=== PATIENT | female | born 1940 | race Caucasian/White ===

== ENCOUNTER 2024-11-21 07:53 | Emergency (ER) | payer MEDICARE, BC, SELFPAY ==
[2024-11-21] VITALS (14 sets, daily range): BP systolic 121–158; BP diastolic 56–79; PULSE 89–101; RESP 16; TEMP 36.7; O2SAT 95–98; BMI 16.8
[2024-11-21 08:32] LABS: Add Manual Diff / Slide Review NO; Hematocrit 38.0 % (36-46); Hemoglobin 13.0 g/dL (12.0-16.0); Lymphocytes Absolute Auto 800 /uL (1100-4500); Mean Corpuscular HGB Conc 34.1 % (30-36); Mean Corpuscular Hemoglobin 32.2 PG (26-34); Mean Corpuscular Volume 94.5 fL (80-100); Platelet Count 225 X10^3/uL (150-400)
--- NOTE | 2024-11-21 08:41 | ED.ABDPAIN ---
HPI - Abdominal Pain General Chief Complaint: Abdominal Pain Stated Complaint: Per patient, Possible Appendicitis x 1 day Time Seen by Provider: 11/21/24 08:19 History of Present Illness HPI narrative: This is an 84-year-old female who arrives by private vehicle accompanied by her daughter. She is reporting right lower quadrant abdominal pain for about 12 hours onset last night. She has also had some increase in her chronic diarrhea without blood, had nausea and vomited this morning. Also had a fever this morning. Not having urinary symptoms. Has a history of esophageal cancer with previous esophagectomy and right colectomy. Not sure she has had a previous appendectomy.. Last oral intake was before midnight last night. Patient takes diltiazem and metoprolol for her ?heart?. Does not have atrial fibrillation and states she is not anticoagulated Related Data Allergies Allergy/AdvReac Type Severity Reaction Status Date / Time garlic Allergy Verified 11/21/24 08:17 Exam Narrative Exam Narrative: Elderly female who is alert appears to be in no distress mildly tachycardic Initial Vital Signs Initial Vital Signs: Vital Signs Pulse Rate 97 H 11/21/24 08:10 Blood Pressure 149/79 H 11/21/24 08:10 Pulse Oximetry 97 11/21/24 08:10 HENMT HENMT Other: Normocephalic atraumatic oral mucosa is moist Resp Other: Lungs are clear normal respiratory effort Cardio Other: Regular rhythm and rate no murmur rub or gallop GI Other: Normal bowel sounds, abdomen is soft she is tender in the right lower quadrant with guarding. Skin Other: Warm and dry Neuro Other: Alert and oriented without gross deficits Course Orders Ordered: ED Orders 11/21/24 08:26 Complete Blood Count AUTO DIFF Stat Comprehensive Metabolic Panel Stat Lipase Stat 11/21/24 08:40 CT abdomen pelvis w con Stat 11/21/24 09:18 Urine Microscopic Stat 11/21/24 11:03 US abdomen limited Stat Discontinued Medications Acetaminophen (Acetaminophen 325 Mg Tablet) 975 mg PO NOW ONE Stop: 11/21/24 11:25 Last Admin: 11/21/24 11:50 Dose: Not Given Documented By: FLO Hydromorphone HCl (Hydromorphone 1 Mg/Ml Syringe) 0.5 mg IV NOW ONE Stop: 11/21/24 09:27 Last Admin: 11/21/24 09:44 Dose: 0.5 mg Documented By: FLO(2) Sodium Chloride (Normal Saline 0.9%) 1,000 mls @ 1,000 mls/hr IV BOLUS ONE Stop: 11/21/24 09:39 Last Infusion: 11/21/24 10:28 Dose: Infused Documented By: Admin: 11/21/24 09:09 Dose: 1,000 mls/hr Documented By: Ondansetron HCl (Ondansetron 4 Mg/2 Ml Inj) 4 mg IV NOW PRN PRN Reason: Nausea And Vomiting Last Admin: 11/21/24 11:24 Dose: 4 mg Documented By: Ondansetron HCl (Ondansetron 4 Mg Odt) 4 mg PO NOW PRN PRN Reason: Nausea And Vomiting Vital Signs Vital signs: Vital Signs - 8 hr 11/21/24 09:00 11/21/24 09:36 11/21/24 09:36 Pulse Rate 94 H 101 H Blood Pressure 158/72 H Pulse Oximetry 98 98 11/21/24 10:00 11/21/24 10:00 11/21/24 10:24 Pulse Rate 95 H 95 H Blood Pressure 133/62 Pulse Oximetry 95 96 11/21/24 10:24 11/21/24 10:30 11/21/24 10:30 Pulse Rate 92 H Blood Pressure 135/63 131/56 L Pulse Oximetry 95 11/21/24 11:00 11/21/24 11:00 11/21/24 11:30 Pulse Rate 93 H 90 Blood Pressure 121/64 Pulse Oximetry 97 96 11/21/24 11:30 11/21/24 12:00 11/21/24 12:00 Pulse Rate 89 Blood Pressure 136/62 126/72 Pulse Oximetry 97 11/21/24 12:30 11/21/24 12:30 11/21/24 13:00 Pulse Rate 91 H 94 H Blood Pressure 135/62 Pulse Oximetry 95 97 11/21/24 13:04 11/21/24 13:04 Pulse Rate 92 H Blood Pressure 132/63 Pulse Oximetry 97 MDM - Abdominal Pain Lab Data 11/21/24 08:26 11/21/24 08:26 Labs: Lab Results 11/21/24 11/21/24 Range/Units 08:26 09:18 WBC 9.9 (4.5-11.0) X10^3/uL RBC 4.03 (4.0-5.2) X10^6/uL Hgb 13.0 (12.0-16.0) g/dL Hct 38.0 (36-46) % MCV 94.5 (80-100) fL MCH 32.2 (26-34) PG MCHC 34.1 (30-36) % RDW 15.3 H (11.6-14.8) % Plt Count 225 (150-400) X10^3/uL Neut % (Auto) 85.0 H (50-75) % Lymph % (Auto) 7.9 L (25-40) % Dale % (Auto) 6.4 (3-14) % Eos % (Auto) 0.2 L (2-4) % Baso % (Auto) 0.5 (0-2) % Neut # (Auto) 8500 H (4294-0245) /uL Lymph # (Auto) 800 L (1034-8443) /uL Dale # (Auto) 600 (0-900) /uL Eos # (Auto) 0 (0-450) /uL Baso # (Auto) 100 (0-100) /uL Sodium 135 L (137-145) mmol/L Potassium 4.1 (3.4-5.1) mmol/L Chloride 102 (98-107) mmol/L Carbon Dioxide 27 (22-32) mmol/L BUN 15 (7-17) mg/dL Creatinine 0.82 (0.52-1.04) mg/dL Estimated GFR > 60 (>60) mL/min BUN/Creatinine Ratio 18.3 (6-22) Glucose 92 (70-99) mg/dL Calcium 8.2 L (8.4-10.2) mg/dL Total Bilirubin 1.8 H (0.2-1.3) mg/dL AST 34 (14-36) IU/L ALT 22 (<35) IU/L Alkaline Phosphatase 87 (38-126) U/L Total Protein 6.7 (6.3-8.2) g/dL Albumin 4.2 (3.5-5.0) g/dL Globulin 2.5 (1.7-4.1) g/dL Albumin/Globulin Ratio 1.7 (1.0-2.8) Lipase 13 L (23-300) U/L Urine RBC 1-5/hpf (0-5/HPF) Urine WBC 1-5/hpf (0-5/HPF) Ur Squamous Epith Cells 1-5 /hpf (0-5/HPF) Urine Bacteria Occasional (0-1) (None) Ur Culture Indicated? Cult not indicated Vol Urine Centrifuged 10ml (spun) Point of care testing: Urine Dip Bedside Urine Glucose Negative Bedside Urine Bilirubin - Negative Bedside Urine Ketone ++ 40 Urine Specific [place] 1.015 Bedside Urine Occult Blood + Bedside Urine pH 5.5 Bedside Urine Protein +/- 15 Bedside Urine Urobilinogen - Negative Bedside Urine Nitrite - Negative Bedside Urine Leukocytes - Negative Esterase Imaging Data CT scan - abdomen/pelvis: My Impression: Independent review of CT abdomen and pelvis, some bowel thickening, no evidence of obstruction perforation, gallbladder is distended with gallstones present but does not appear to have acute cholecystitis Radiologist's Impression: [address] [address] [address] Scan Report Signed Patient: Lacie Lott MR#: [id number] : 1940 Acct:[id number] Age/Sex: 84 / F Date of Service: 11/21/24 Loc: ED Accession Number: [id number] Procedure: CT abdomen pelvis w con Ordering Provider: Chun Johnson MD PROCEDURE: CT ABDOMEN PELVIS W CON INDICATIONS: rlq abd pain TECHNIQUE: After the administration of intravenous contrast, axial sections acquired from the lung bases to the pubic symphysis. Coronal and sagittal reformats were performed. For radiation dose reduction, the following was used: automated exposure control, adjustment of mA and/or kV according to patient size. COMPARISON: None. FINDINGS: Image quality: Diagnostic. Lower Chest: Hiatal hernia. Mild band like atelectasis or scarring in the lung bases. ABDOMEN: Liver: No solid mass. Benign appearing cyst is seen in the left hepatic lobe. Gallbladder: Mildly distended gallbladder with multiple tiny calcified gallstones. No significant wall thickening. Biliary ducts: No biliary dilation or choledocholith. Pancreas: No ductal dilation. Spleen: Size is within normal limits. Nonspecific 15 mm hypoattenuating lesion is seen within the spleen. Adrenal Glands: No adrenal nodules. Kidneys and Ureters: Mild scarring at the superior pole the left kidney. No hydronephrosis. No solid mass. No complex renal cystic lesion which requires follow up. Stomach and Bowel: Postsurgical changes are seen with ileocolonic anastomosis in the right lower abdomen. There is marked bowel wall thickening in the transverse and proximal descending colon with pericolonic fat stranding Peritoneum: Small volume of free fluid is seen in the abdomen and pelvis. No pneumoperitoneum. Ventral Wall: No significant ventral hernia. Abdominal Nodes: No retroperitoneal or mesenteric adenopathy by size criteria. Vessels: Aorta and inferior vena cava are normal in size. PELVIS: Pelvic Organs: Status post hysterectomy. Bladder: No bladder wall thickening, accounting for underdistention. Pelvic Nodes: No enlarged lymph nodes. Miscellaneous: No inguinal hernias are seen. Bones: No aggressive osseous abnormality. IMPRESSION: 1. Long segment bowel wall thickening in the transverse and proximal descending colon with pericolonic fat stranding, suspicious for a nonspecific colitis. 2. Small volume of ascites in the abdomen or pelvis. 3. Mildly distended gallbladder with cholelithiasis but no definite signs of acute cholecystitis. 4. Moderate hiatal hernia. Postsurgical changes at the stomach and cecum. Approved by: Barrera Paniagua M.D. on 11/21/2024 at 10:25 US - abdomen: Radiologist's Impression: [place] [address] Ultrasound Report Signed Patient: Lacie Lott MR#: [id number] : 1940 Acct:[id number] Age/Sex: 84 / F Date of Service: 11/21/24 Loc: ED Accession Number: [id number] Procedure: US abdomen limited Ordering Provider: Chun Johnson MD PROCEDURE: US ABDOMEN LIMITED INDICATIONS: RIGHT UPPER QUADRANT PAIN, CHOLECYSTITIS. TECHNIQUE: Real-time focused scanning was performed of the abdomen, with image documentation. COMPARISON: None. FINDINGS: Cholelithiasis with numerous echogenic shadowing gallstones in the moderately distended gallbladder. Possible mild pericholecystic fluid may be related to mild diffuse abdominal ascites however raises the suspicion for acute cholecystitis. If indicated nuclear medicine HIDA scan or CT abdomen/pelvis may be useful for further evaluation. No gross gallbladder wall thickening. Sonographic Hurd sign is not delineated. Common bile duct 6 millimeters within normal limits. Atrophic pancreas is noted without gross ultrasound evidence of pancreatic mass. Incidental note is made of a right pleural effusion partially imaged. Mild right renal pelviectasis, versus normal variant extrarenal pelvis or mild right hydronephrosis partially imaged. Liver measures approximately 15.8 cm in CC dimension of the. Hepatic echogenicity within normal limits without focal hepatic lesion. IMPRESSION: Cholelithiasis with equivocal findings for cholecystitis as discussed above. If indicated nuclear medicine HIDA scan, or CT abdomen/pelvis could be performed. Mild abdominal ascites and right pleural effusion. Mild right renal pelviectasis as discussed above. Common bile duct 6 mm within normal limits. Dictated by: Lavell Medrano M.D. on 11/21/2024 at 12:40 Approved by: Lavell Medrano M.D. on 11/21/2024 at 12:57 MDM Narrative Medical decision making narrative: 84-year-old female with right lower quadrant abdominal pain. She is status post colectomy, it was unclear whether appendix is still present. She has diarrhea which is chronic but a bit worse. Patient is overall well-appearing differential diagnosis considered included bowel obstruction, colitis, appendicitis, ureteral stone or pyelonephritis. Workup did suggest colitis. Cholecystitis was considered based on imaging however clinically seemed unlikely. Recommended symptomatic treatment with clear liquid diet and acetaminophen for pain. Patient was quite reassured that appendicitis was not felt to be present. She was advised specifically to return to the emergency department if getting worse and she has follow up with her primary care provider soon. Discharge Plan Departure Patient Disposition: Home Clinical Impression: Colitis Abdominal pain Qualifiers: Abdominal location: right lower quadrant Qualified Code(s): R10.31 - Right lower quadrant pain Activity Restrictions/Additional Instructions: Emergency department workup today is reassuring. I think it is safe for you to go home. Imaging does suggest you have some inflammation of your colon, it is not clear what is causing this and often times this resolves with time. I recommend that you follow a clear liquid diet until you start to feel a bit better. You can use Tylenol as needed for pain at usual [id number] doses. Continue your previous home medications. If you are feeling worse such as having fevers frequent vomiting increasing pain bloody diarrhea please return to the emergency department immediately. Also, I recommend that you follow up as soon as possible with your primary care provider. Stand Alone Forms: Patient Portal/API
[2024-11-21 08:51] LABS: Alanine Aminotransferase 22 IU/L (<35); Albumin 4.2 g/dL (3.5-5.0); Albumin Globulin Ratio 1.7 (1.0-2.8); Alkaline Phosphatase 87 U/L (38-126); Blood Urea Nitrogen 15 mg/dL (7-17); Calcium 8.2 mg/dL (8.4-10.2); Carbon Dioxide 27 mmol/L (22-32); Chloride 102 mmol/L (98-107); Estimated Glomerular Filt Rate > 60 mL/min (>60); Globulin 2.5 g/dL (1.7-4.1); Glucose 92 mg/dL (70-99); HEMOLYSIS < 15 (0-50); Lipase 13 U/L (23-300); Potassium 4.1 mmol/L (3.4-5.1); Sodium 135 mmol/L (137-145); Total Protein 6.7 g/dL (6.3-8.2)
[2024-11-21] MEDS: SODIUM CHLORIDE 0.9% 1,000 ML 1000 ML IV (09:09)
[2024-11-21 09:46] LABS: Culture Indicated Urine Cult Not Indicated
--- NOTE | 2024-11-21 11:03 | DI.US.S_ITS ---
PROCEDURE: US ABDOMEN LIMITED INDICATIONS: RIGHT UPPER QUADRANT PAIN, CHOLECYSTITIS. TECHNIQUE: Real-time focused scanning was performed of the abdomen, with image documentation. COMPARISON: None. FINDINGS: Cholelithiasis with numerous echogenic shadowing gallstones in the moderately distended gallbladder. Possible mild pericholecystic fluid may be related to mild diffuse abdominal ascites however raises the suspicion for acute cholecystitis. If indicated nuclear medicine HIDA scan or CT abdomen/pelvis may be useful for further evaluation. No gross gallbladder wall thickening. Sonographic Hurd sign is not delineated. Common bile duct 6 millimeters within normal limits. Atrophic pancreas is noted without gross ultrasound evidence of pancreatic mass. Incidental note is made of a right pleural effusion partially imaged. Mild right renal pelviectasis, versus normal variant extrarenal pelvis or mild right hydronephrosis partially imaged. Liver measures approximately 15.8 cm in CC dimension of the. Hepatic echogenicity within normal limits without focal hepatic lesion. IMPRESSION: Cholelithiasis with equivocal findings for cholecystitis as discussed above. If indicated nuclear medicine HIDA scan, or CT abdomen/pelvis could be performed. Mild abdominal ascites and right pleural effusion. Mild right renal pelviectasis as discussed above. Common bile duct 6 mm within normal limits. Dictated by: Lavell Medrano M.D. on 11/21/2024 at 12:40 Approved by: Lavell Medrano M.D. on 11/21/2024 at 12:57
[2024-11-21] MEDS: ONDANSETRON 4 MG/2 ML INJ IV (11:24)
== END 2024-11-21 13:42 | disposition home or self-care (01) ==
PROVIDERS: Emergency Provider Emergency Medicine
DX: K52.9 Noninfective gastroenteritis and colitis, unspecified (principal); R10.31 Right lower quadrant pain; R11.2 Nausea with vomiting, unspecified; Z85.01 Personal history of malignant neoplasm of esophagus
CPT/HCPCS: 36415; 74177; 76705; 80053; 81003; 81015; 83690; 85025; 99284; J1171; J2405; J7030; Q9967